=== PATIENT | male | born 2000 | race Two or more races ===

== ENCOUNTER 2024-08-09 07:24 | Emergency (ER) | payer SELFPAY ==
[~2024-08-09] VITALS: Ht 185.4 cm; Wt 78.5 kg
[2024-08-09 07:30] VITALS: BP 129/69; TEMP 96.7; O2SAT 100
[2024-08-09 09:19] LABS: Trichomonas vaginalis (AMP) NOT DETECTED (NEGATIVE)
[2024-08-09 09:42] LABS: GC DNA AMPLIFICATION NEGATIVE (NEGATIVE)
== END 2024-08-09 12:06 | disposition left against medical advice (07) ==
LOC: M ED 07:24
DX: Z53.21 Procedure and treatment not carried out due to patient leaving prior to being seen by health care provider (principal)